=== PATIENT | female | born 2000 | race Caucasian/White ===

== ENCOUNTER 2023-12-20 02:32 | Emergency (ER) | payer OTHER ==
[2023-12-20 02:44] VITALS: BP 144/87; PULSE 98; RESP 20; TEMP 98.7; BMI 20.1
[2023-12-20] MEDS ORDERED: ACETAMINOPHEN 500 MG TABLET (FP) ONE (03:54)
[2023-12-20] MEDS: ACETAMINOPHEN 500 MG TABLET (FP) PO ONE (04:00)
== END 2023-12-20 05:03 | disposition home or self-care (01) ==
LOC: JER 02:32
DX: R07.89 Other chest pain (principal)
CPT/HCPCS: 84703; 93005; 93010; 99284-25